=== PATIENT | male | born 1975 | race Caucasian/White ===

== ENCOUNTER 2022-08-19 16:13 | Emergency (ER) | payer MEDICAID, OTHER ==
[~2022-08-19] VITALS: Ht 182.9 cm; Wt 89.0 kg
[2022-08-19 16:40] VITALS: BP 114/71
== END 2022-08-19 23:01 | disposition left against medical advice (07) ==
LOC: ER 16:13
DX: H57.12 Ocular pain, left eye (principal); Z53.21 Procedure and treatment not carried out due to patient leaving prior to being seen by health care provider